=== PATIENT | female | born 1950 | race Caucasian/White ===

== ENCOUNTER 2022-03-14 13:58 | Outpatient (CLI) | payer MEDICARE, OTHER | END 2022-03-14 13:59 | disposition home or self-care (01) | LOC: CSHMAMMO 13:58 | PROVIDERS: ATTEND Family Medicine | DX: Z12.31 Encounter for screening mammogram for malignant neoplasm of breast (principal); Z91.89 Other specified personal risk factors, not elsewhere classified; Z85.820 Personal history of malignant melanoma of skin; Z80.3 Family history of malignant neoplasm of breast | CPT/HCPCS: 77063; 77067 ==

== ENCOUNTER 2024-04-22 08:32 | Outpatient (CLI) | payer MEDICARE, OTHER | END 2024-04-22 08:33 | disposition home or self-care (01) | LOC: CSHMAMMO 08:32 | PROVIDERS: ATTEND Obstetrics & Gynecology | DX: Z12.31 Encounter for screening mammogram for malignant neoplasm of breast (principal); Z80.3 Family history of malignant neoplasm of breast; Z91.89 Other specified personal risk factors, not elsewhere classified; Z85.820 Personal history of malignant melanoma of skin | CPT/HCPCS: 77063; 77067 ==